=== PATIENT | female | born 1950 | race Caucasian/White ===

== ENCOUNTER 2017-03-05 13:30 | Emergency (ER) | payer MEDICARE, OTHER ==
--- NOTE | 2017-03-05 14:27 | EDM.PDOC ---
ED HPI GENERAL MEDICAL PROBLEM - General Chief Complaint: Abdominal Pain Stated Complaint: PANCREATITIS Time Seen by Provider: 03/05/17 13:35 Source of Information: Reports: Patient History Limitations: Reports: No Limitations - History of Present Illness INITIAL COMMENTS - FREE TEXT/NARRATIVE: The patient states that she had pancreatitis on 11/28/2016, while visiting [place]. She was admitted to the [facility] ER, where, she states, her pancreatitis was treated with a large amount of IV fluid for 2 days. She states that an ultrasound of the right upper quadrant was performed, but no other imaging studies. She then underwent a laparoscopic cholecystectomy on 11/30/2016. She states that purulent material was found in the gallbladder. She has done well since that surgery. She states that she woke this morning around 06:30 or 07:00 with epigastric pain radiating through to her back. She has difficulty describing the character of the pain. She had nausea with one episode of emesis. No recent constipation, diarrhea, urinary symptoms, or fever. She states that her symptoms were the same as when she had pancreatitis in November. She went to the walk-in clinic, where blood work was done, finding a lipase of 40,366, and a WBC count elevated at 15.8, but with 0% bandemia. No imaging studies were done. The patient was given Zofran in the clinic before being sent here for admission. Here in the ED, the patient states that she is feeling substantially better. The patient's PCP is Dr. Toñito Stephens. Abdominal Pain Score (Numeric/FACES): 7 - Related Data Allergies Allergy/AdvReac Type Severity Reaction Status Date / Time alendronate sodium Allergy Other Verified 03/05/17 13:48 [From Fosamax] Fish Containing Products Allergy Rash Verified 03/05/17 13:47 ibandronate sodium Allergy Other Verified 03/05/17 13:47 [From Boniva] Home Meds: Home Meds Albuterol [Ventolin HFA] 2 puff INH QID 03/05/17 [History] Aspirin [Halfprin] 81 mg PO DAILY 03/05/17 [History] Budesonide/Formoterol [Symbicort 160-4.5 MCG] 2 puff INH BID 03/05/17 [History] Cetirizine HCl [Zyrtec] 10 mg PO DAILY 03/05/17 [History] Codeine/Promethazine [Phenergan with Codeine] 3 tsp PO Q6H PRN 03/05/17 [History ] Denosumab [Prolia] 60 mg IM ASDIRECTED 03/05/17 [History] Estradiol [Vagifem] 10 mcg VG ASDIRECTED 03/05/17 [History] Hydrochlorothiazide 12.5 mg PO DAILY 03/05/17 [History] LORazepam [Ativan] 1 mg PO BEDTIME PRN 03/05/17 [History] Nebivolol HCl [Bystolic] 5 mg PO DAILY 03/05/17 [History] Omeprazole 20 mg PO ASDIRECTED 03/05/17 [History] Pravastatin [Pravachol] 40 mg PO DAILY 03/05/17 [History] Ubidecarenone/Vitamin E Mixed [Kjk74-Tgp E 200 mg-20 Unit Sfg] 1 each PO DAILY 03/05/17 [History] traMADol [Ultram] 50 mg PO Q6H PRN 03/05/17 [History] Past Medical History HEENT History: Reports: Impaired Vision Other HEENT History: wears glasses Cardiovascular History: Reports: Arrhythmia (Benign tachycardia), High Cholesterol, Hypertension Gastrointestinal History: Reports: GERD, Pancreatitis - Past Surgical History GI Surgical History: Reports: Appendectomy (around 2004), Cholecystectomy (11/30), Colonoscopy Female Surgical History: Reports: Section (x 3), D&C (x 1), Hysterectomy (around 2004), Salpingo-Oophorectomy (around 2004), Tubal Ligation , Other (See Below) (Bladder suspension around 2004) Musculoskeletal Surgical History: Reports: Knee Replacement (left, 2013) Social & Family History - Tobacco Use Smoking Status *Q: Never Smoker - Alcohol Use Alcohol Use History: Yes Alcohol Use Frequency: Socially - Recreational Drug Use Recreational Drug Use: No - Living Situation & Occupation Living situation: Reports: , with Spouse Occupation: Retired (Pharmacist) ED ROS GENERAL - Review of Systems Review Of Systems: ROS reveals no pertinent complaints other than HPI. ED EXAM, GI/ABD - Physical Exam Exam: See Below Exam Limited By: No Limitations General Appearance: Alert, WD/WN, No Apparent Distress Eyes: Bilateral: Normal Appearance, EOMI Ears: Normal External Exam, Hearing Grossly Normal Nose: Normal Inspection, No Blood Throat/Mouth: Normal Inspection, Normal Lips, Normal Voice, No Airway Compromise Head: Atraumatic, Normocephalic Neck: Normal Inspection, Full Range of Motion Respiratory/Chest: No Respiratory Distress, Lungs Clear, Normal Breath Sounds, No Accessory Muscle Use Cardiovascular: Normal Peripheral Pulses, Regular Rate, Rhythm, No Gallop, No JVD, No Murmur, No Rub GI/Abdominal Exam: Normal Bowel Sounds, Soft, No Organomegaly, No Distention, No Abnormal Bruit, No Mass, Tender (Epigastric and left upper quadrant only. Nontender elsewhere.) (Female) Exam: Deferred Rectal (Female) Exam: Deferred Back Exam: Normal Inspection, Full Range of Motion. No: CVA Tenderness (L), CVA Tenderness (R) Extremities: Normal Inspection, Normal Range of Motion, No Pedal Edema, Normal Capillary Refill Neurological: Alert, Oriented, Normal Cognition, No Motor/Sensory Deficits Psychiatric: Normal Affect Skin Exam: Warm, Dry, Intact, Normal Color, No Rash Course - Vital Signs Last Recorded V/S: Last Vital Signs Temp 36.9 C 03/05/17 14:35 Pulse 88 03/05/17 14:35 Resp 16 03/05/17 14:30 BP 104/84 03/05/17 14:35 Pulse Ox 97 03/05/17 14:35 - Orders/Labs/Meds Orders: Active Orders 24 hr Category Date Time Status Sodium Chloride 0.9% [Normal Saline] 1,000 ml Med 03/05/17 14:30 Active IV ASDIRECTED Medication Orders Sodium Chloride (Normal Saline) 1,000 mls @ 150 mls/hr IV ASDIRECTED [facility] Last Admin: 03/05/17 14:33 Dose: 150 mls/hr Meds: Medications Generic Name Dose Route Start Last Admin Trade Name Freq PRN Reason Stop Dose Admin Sodium Chloride 1,000 mls @ 150 mls/hr 03/05/17 14:30 03/05/17 14:33 Normal Saline IV 150 mls/hr ASDIRECTED [facility] Administration - Re-Assessments/Exams Free Text/Narrative Re-Assessment/Exam: 03/05/17 14:18 Statistically, the most likely cause of the patient's current pancreatitis is a retained common bile duct stone, although it is also possible that the patient could have sphincter of Cecil dysfunction. It is also possible that the patient had a retained common bile duct stone, but has since passed it. An ultrasound of the right upper quadrant will visualize the upper two thirds of the common bile duct, but does not visualize the lower one third, therefore would not be helpful in this case. I believe the patient would be best served if she underwent a MRCP, although an argument could be made to perform an ERCP to retrieve a stone, if present, or open the sphincter of Cecil, if that was thought to be the cause. Concern about an ERCP is that if a retrograde cholangiogram were performed in order to visualize a stone, that could worsen the patient's pancreatitis. A MRCP is not available from the ED - the patient would have to be admitted, and an ERCP is not available at this facility. This was discussed with Dr. Little, who recommended that the patient be transferred to [place] for evaluation and treatment, as opposed to being admitted here. This plan was discussed with the patient and her , and she is agreeable. She prefers [facility]. 03/05/17 14:[address] Campos, Bsw at [facility], at 14: 27. He agrees that the patient should have a MRCP. He would like the patient to be admitted to the Hospitalist service. Case then discussed with Dr. Lagos, Hospitalist at [facility], at 14:32. He accepts the patient for direct admission. 03/05/17 14:58 Notified that the [facility] ambulance service is unavailable. The [facility] ambulance service is available, but cannot get here for about an hour. I discussed the option of the patient's driving the patient, however, he would not be available to do that until 17:00, therefore, despite the ambulance delay, the patient will still get there faster by ambulance. Departure - Departure Time of Disposition: 14:35 Disposition: DC/Tfer to Acute Hospital 02 Condition: Fair Clinical Impression: Acute pancreatitis - Discharge Information - My Orders Last 24 Hours: My Active Orders 03/05/17 14:30 Sodium Chloride 0.9% [Normal Saline] 1,000 ml IV ASDIRECTED - Assessment/Plan Last 24 Hours: My Active Orders 03/05/17 14:30 Sodium Chloride 0.9% [Normal Saline] 1,000 ml IV ASDIRECTED
[2017-03-05] MEDS ORDERED: Sodium Chloride 0.9% 1,000 ML IV SCH (14:30)
== END 2017-03-05 16:00 ==
LOC: JD.ED 13:30
DX: K85.90 Acute pancreatitis without necrosis or infection, unspecified (principal); E78.00 Pure hypercholesterolemia, unspecified; I10 Essential (primary) hypertension; Z91.013 Allergy to seafood; Z88.8 Allergy status to other drugs, medicaments and biological substances; Z79.82 Long term (current) use of aspirin; Z79.899 Other long term (current) drug therapy; Z90.49 Acquired absence of other specified parts of digestive tract; Z90.710 Acquired absence of both cervix and uterus
CPT/HCPCS: 96360; 99284; J7040

== ENCOUNTER 2020-09-02 11:18 | Emergency (ER) | payer OTHER, MEDICARE ==
[2020-09-02] MEDS ORDERED: Sodium Chloride 0.9% 10 ML Syringe FLUSH PRN (12:18)
[2020-09-02 13:20] LABS: HEMOGLOBIN A1C 9.4 %
--- NOTE | 2020-09-02 13:39 | EDM.PDOC ---
ED HPI GENERAL MEDICAL PROBLEM - General Chief Complaint: Diabetic Complaint Stated Complaint: DIABETES COMPLAINT Time Seen by Provider: 09/02/20 12:15 Source of Information: Reports: Patient, RN Notes Reviewed History Limitations: Reports: No Limitations - History of Present Illness INITIAL COMMENTS - FREE TEXT/NARRATIVE: Patient is a 69-year-old female presenting to the emergency department with complaints of hyperglycemia. She reports that for approximate last week, she has been have increased thirst and urination. She purchased a glucometer and has been monitoring her blood sugars at home. Reports that its highest, she was 500 after eating pizza and cake. She has since stopped eating carbs. Reports that her blood sugars have been in the upper 200s to 300s since stopping carb intake. She went to a pharmacy and had her A1c checked and was found to be 10. She reports that when she was having the significantly high blood sugar she did have some mild blurry vision but this has resolved. She contacted her primary care provider, Magaly Connolly, who was unable to get her in today and recommended she come to the ER to get started on diabetic medications. She does have an appointment with a coding educator tomorrow. Denies any abdominal pain, nausea, vomiting, or diarrhea. Reports that she had a complete physical last year and that there was no evidence of diabetes at that time. - Related Data Allergies Allergy/AdvReac Type Severity Reaction Status Date / Time alendronate sodium Allergy Other Verified 09/02/20 12:14 [From Fosamax] Fish Containing Products Allergy Rash Verified 09/02/20 12:14 ibandronate sodium Allergy Other Verified 09/02/20 12:14 [From Boniva] Home Meds: Home Meds Albuterol [Ventolin HFA] 2 puff INH QID 03/05/17 [History] Aspirin [Halfprin] 81 mg PO DAILY 03/05/17 [History] Budesonide/Formoterol [Symbicort 160-4.5 MCG] 2 puff INH BID 03/05/17 [History] Cetirizine HCl [Zyrtec] 10 mg PO DAILY 03/05/17 [History] Codeine/Promethazine [Phenergan with Codeine] 3 tsp PO Q6H PRN 03/05/17 [History] Denosumab [Prolia] 60 mg IM ASDIRECTED 03/05/17 [History] LORazepam [Ativan] 1 mg PO BEDTIME PRN 03/05/17 [History] Nebivolol HCl [Bystolic] 5 mg PO DAILY 03/05/17 [History] Omeprazole 20 mg PO ASDIRECTED 03/05/17 [History] Pravastatin [Pravachol] 40 mg PO DAILY 03/05/17 [History] Ubidecarenone/Vitamin E Mixed [[id number]-Fdm E 200 mg-20 Unit Sfg] 1 each PO DAILY 03/05/17 [History] estradioL [Vagifem] 10 mcg VG ASDIRECTED 03/05/17 [History] hydroCHLOROthiazide [Hydrochlorothiazide] 12.5 mg PO DAILY 03/05/17 [History] traMADol [Ultram] 50 mg PO Q6H PRN 03/05/17 [History] metFORMIN [Glucophage] 500 mg PO BIDMEALS #60 tab 09/02/20 [Rx] Past Medical History HEENT History: Reports: Impaired Vision Other HEENT History: wears glasses Cardiovascular History: Reports: Arrhythmia, High Cholesterol, Hypertension Gastrointestinal History: Reports: GERD, Pancreatitis - Past Surgical History GI Surgical History: Reports: Appendectomy, Cholecystectomy, Colonoscopy Female Surgical History: Reports: Section, D&C, Hysterectomy, Salpingo-Oophorectomy, Tubal Ligation, Other (See Below) Musculoskeletal Surgical History: Reports: Knee Replacement Social & Family History - Tobacco Use Tobacco Use Status *Q: Never Tobacco User - Recreational Drug Use Recreational Drug Use: No - Living Situation & Occupation Living situation: Reports: , with Spouse Occupation: Retired (Pharmacist) ED ROS GENERAL - Review of Systems Review Of Systems: See Below Constitutional: Reports: No Symptoms HEENT: Reports: Vision Change Respiratory: Reports: No Symptoms Cardiovascular: Reports: No Symptoms Endocrine: Reports: High Glucose, Polydypsia, Polyuria GI/Abdominal: Reports: No Symptoms : Reports: No Symptoms Musculoskeletal: Reports: No Symptoms Skin: Reports: No Symptoms Neurological: Reports: No Symptoms Psychiatric: Reports: No Symptoms Hematologic/Lymphatic: Reports: No Symptoms Immunologic: Reports: No Symptoms ED EXAM GENERAL NO PERIP PULSE - Physical Exam Exam: See Below Exam Limited By: No Limitations General Appearance: Alert, WD/WN, No Apparent Distress Eye Exam: Bilateral Eye: Normal Inspection Respiratory/Chest: No Respiratory Distress, Lungs Clear, Normal Breath Sounds, No Accessory Muscle Use, Chest Non-Tender Cardiovascular: Normal Peripheral Pulses, Regular Rate, Rhythm, No Edema, No Gallop, No JVD, No Murmur, No Rub GI/Abdominal: Normal Bowel Sounds, Soft, Non-Tender, No Organomegaly, No Distention, No Abnormal Bruit, No Mass Neurological: Alert, Oriented, CN II-XII Intact, Normal Cognition, Normal Gait, Normal Reflexes, No Motor/Sensory Deficits Psychiatric: Normal Affect, Normal Mood Course - Vital Signs Last Recorded V/S: Last Vital Signs Temp 97.2 F 09/02/20 12:11 Pulse 97 09/02/20 12:11 Resp 18 09/02/20 12:11 BP 135/93 H 09/02/20 12:11 Pulse Ox 97 09/02/20 12:11 - Orders/Labs/Meds Labs: Laboratory Tests 09/02/20 09/02/20 09/02/20 Range/Units 12:35 12:35 12:35 WBC 6.68 (3.98-10.04) K/mm3 RBC 4.99 (3.98-5.22) M/mm3 Hgb 14.3 (11.2-15.7) gm/dl Hct 40.2 (34.1-44.9) % MCV 80.6 (79.4-94.8) fl MCH 28.7 (25.6-32.2) pg MCHC 35.6 H (32.2-35.5) g/dl RDW Std Deviation 36.3 L (36.4-46.3) fL Plt Count 270 (182-369) K/mm3 MPV 9.7 (9.4-12.3) fl Neut % (Auto) 71.2 H (34.0-71.1) % Lymph % (Auto) 16.6 L (19.3-51.7) % [place] % (Auto) 9.3 (4.7-12.5) % Eos % (Auto) 2.1 (0.7-5.8) Baso % (Auto) 0.4 (0.1-1.2) % Neut # (Auto) 4.75 (1.56-6.13) K/mm3 Lymph # (Auto) 1.11 L (1.18-3.74) K/mm3 [place] # (Auto) 0.62 H (0.24-0.36) K/mm3 Eos # (Auto) 0.14 (0.04-0.36) K/mm3 Baso # (Auto) 0.03 (0.01-0.08) K/mm3 Sodium 134 L (136-145) mEq/L Potassium 3.3 L (3.5-5.1) mEq/L Chloride 97 L (98-107) mEq/L Carbon Dioxide 22 (21-32) mEq/L Anion Gap 18.3 H (5-15) BUN 19 H (7-18) mg/dL Creatinine 1.1 H (0.55-1.02) mg/dL Est Cr Clr Drug Dosing 38.71 mL/min Estimated GFR (MDRD) 49 (>60) mL/min BUN/Creatinine Ratio 17.3 (14-18) Glucose 302 H (70-99) mg/dL Hemoglobin A1c 9.4 H ( - 5.6) % Calcium 8.7 (8.5-10.1) mg/dL Magnesium 2.0 (1.8-2.4) mg/dL Total Bilirubin 0.8 (0.2-1.0) mg/dL AST 18 (15-37) U/L ALT 43 (14-59) U/L Alkaline Phosphatase 153 H (46-116) U/L Total Protein 7.8 (6.4-8.2) g/dl Albumin 4.1 (3.4-5.0) g/dl Globulin 3.7 gm/dL Albumin/Globulin Ratio 1.1 (1-2) Urine Color (Yellow) Urine Appearance (Clear) Urine pH (5.0-8.0) Ur Specific [place] (1.005-1.030) Urine Protein (Negative) Urine Glucose (UA) (Negative) Urine Ketones (Negative) Urine Occult Blood (Negative) Urine Nitrite (Negative) Urine Bilirubin (Negative) Urine Urobilinogen (0.2-1.0) Ur Leukocyte Esterase (Negative) Urine RBC (0-5) /hpf Urine WBC (0-5) /hpf Ur Squamous Epith Cells (0-5) /hpf Urine Bacteria (FEW) /hpf Urine Mucus (FEW) /hpf Ketones (0.0-0.3) mM 09/02/20 09/02/20 Range/Units 12:35 13:55 WBC (3.98-10.04) K/mm3 RBC (3.98-5.22) M/mm3 Hgb (11.2-15.7) gm/dl Hct (34.1-44.9) % MCV (79.4-94.8) fl MCH (25.6-32.2) pg MCHC (32.2-35.5) g/dl RDW Std Deviation (36.4-46.3) fL Plt Count (182-369) K/mm3 MPV (9.4-12.3) fl Neut % (Auto) (34.0-71.1) % Lymph % (Auto) (19.3-51.7) % [place] % (Auto) (4.7-12.5) % Eos % (Auto) (0.7-5.8) Baso % (Auto) (0.1-1.2) % Neut # (Auto) (1.56-6.13) K/mm3 Lymph # (Auto) (1.18-3.74) K/mm3 [place] # (Auto) (0.24-0.36) K/mm3 Eos # (Auto) (0.04-0.36) K/mm3 Baso # (Auto) (0.01-0.08) K/mm3 Sodium (136-145) mEq/L Potassium (3.5-5.1) mEq/L Chloride (98-107) mEq/L Carbon Dioxide (21-32) mEq/L Anion Gap (5-15) BUN (7-18) mg/dL Creatinine (0.55-1.02) mg/dL Est Cr Clr Drug Dosing mL/min Estimated GFR (MDRD) (>60) mL/min BUN/Creatinine Ratio (14-18) Glucose (70-99) mg/dL Hemoglobin A1c ( - 5.6) % Calcium (8.5-10.1) mg/dL Magnesium (1.8-2.4) mg/dL Total Bilirubin (0.2-1.0) mg/dL AST (15-37) U/L ALT (14-59) U/L Alkaline Phosphatase (46-116) U/L Total Protein (6.4-8.2) g/dl Albumin (3.4-5.0) g/dl Globulin gm/dL Albumin/Globulin Ratio (1-2) Urine Color Yellow (Yellow) Urine Appearance Clear (Clear) Urine pH 5.5 (5.0-8.0) Ur Specific [place] 1.020 (1.005-1.030) Urine Protein Negative (Negative) Urine Glucose (UA) 1+ H (Negative) Urine Ketones 2+ H (Negative) Urine Occult Blood Negative (Negative) Urine Nitrite Negative (Negative) Urine Bilirubin Negative (Negative) Urine Urobilinogen 0.2 (0.2-1.0) Ur Leukocyte Esterase Trace H (Negative) Urine RBC Not seen (0-5) /hpf Urine WBC 0-5 (0-5) /hpf Ur Squamous Epith Cells 5-10 H (0-5) /hpf Urine Bacteria Few (FEW) /hpf Urine Mucus Not seen (FEW) /hpf Ketones 1.98 (0.0-0.3) mM Meds: Medications Discontinued Medications Generic Name Dose Route Start Last Admin Trade Name Freq PRN Reason Stop Dose Admin Sodium Chloride 1,000 mls @ 999 mls/hr 09/02/20 14:57 09/02/20 15:04 Normal Saline IV 09/02/20 15:57 999 mls/hr NOW STA Administration Sodium Chloride 10 ml 09/02/20 12:18 09/02/20 12:39 Sodium Chloride 0.9% 10 Ml Syringe FLUSH 10 ml ASDIRECTED PRN Administration Keep Vein Open - Re-Assessments/Exams Free Text/Narrative Re-Assessment/Exam: Patient is a 69-year-old female presenting to the emergency department with concerns of new onset diabetes. Over the last week, sugars have been as high as 500 more recently have been in the upper 200s to 300. She has cut out most all carbs. Is mostly eating vegetables and protein. Reports some blurry vision when her sugars are rather high as but this has resolved. Exam is unremarkable. I have ordered blood work and urinalysis to be completed. I will give her 1 L of normal saline. 09/02/20 16:06 Hematology was significant for potassium slightly low at 3.3, and a gap 18.3, BUN 19, creatinine 1.1, glucose 302, A1c 9.4, serum ketones 1.98. Urinalysis shows 1+ glucose, 2+ ketones, and trace leukocyte esterase. Urine has been sent for culture. Patient has received 1 L of IV fluids. She will be started on Metformin 500 mg at suppertime. If this well-tolerated, she may also take 500 m g with breakfast. She should keep her appointment with diabetic education tomorrow and follow-up with primary care provider next available visit. She is in agreement with this plan. Discharge instructions as documented. Departure - Departure Time of Disposition: 16:15 Disposition: Home, Self-Care 01 Condition: Good Clinical Impression: New onset type 2 diabetes mellitus - Discharge Information *PRESCRIPTION DRUG MONITORING PROGRAM REVIEWED*: No *COPY OF PRESCRIPTION DRUG MONITORING REPORT IN PATIENT AMANDA: No Prescriptions: metFORMIN [Glucophage] 500 mg PO BIDMEALS #60 tab Instructions: Type 2 Diabetes Mellitus, Diagnosis, Adult, [id number] Referrals: Magaly Connolly PA-C [Primary Care Provider] - Forms: ED Department Discharge Additional Instructions: You were seen in the emergency department today for evaluation of elevated blood sugars. Work-up included blood work and urinalysis. Results of work-up did show that you were dehydrated. He received a liter of IV fluids. Blood glucose prior to IV fluids as of 302. Your hemoglobin A1c was 9.4. There was a small amount of bacteria in your urine, therefore this has been sent for culture. If this should grow out signs of infection, you will be notified and started on an antibiotic. You have been started on Metformin. Start by taking 500 mg each evening. If this is well-tolerated, you may increase to 500 mg in the morning and the evening. You have been provided a prescription for glucometer test strips. Keep your appointment with the coding educator as scheduled tomorrow. Follow-up with your primary care provider at her next available visit. Return to ER as needed. Sepsis Event Note (ED) - Evaluation Sepsis Screening Result: No Definite Risk
[2020-09-02] MEDS ORDERED: Sodium Chloride 0.9% 1,000 ML IV STA (14:57)
== END 2020-09-02 16:40 | disposition home or self-care (01) ==
LOC: JD.ED 11:18
DX: E11.65 Type 2 diabetes mellitus with hyperglycemia (principal); E78.00 Pure hypercholesterolemia, unspecified; I10 Essential (primary) hypertension; K21.9 Gastro-esophageal reflux disease without esophagitis; Z79.82 Long term (current) use of aspirin; Z79.84 Long term (current) use of oral hypoglycemic drugs; Z79.899 Other long term (current) drug therapy; Z91.013 Allergy to seafood; Z88.8 Allergy status to other drugs, medicaments and biological substances
CPT/HCPCS: 36415; 80053; 81001; 82009; 83036; 83735; 85025; 99284; J7030